=== PATIENT | male | born 1960 | race Caucasian/White ===

== ENCOUNTER 2020-09-12 06:00 | Outpatient (RCR) | payer MEDICARE, SELFPAY | END 2020-09-14 23:59 | disposition home or self-care (01) | LOC: MST 06:00 | PROVIDERS: PCP Nurse Practitioner Family; Referring Provider Nurse Practitioner Family; Visit Provider Nurse Practitioner Family | DX: I69.328 Other speech and language deficits following cerebral infarction (principal) | CPT/HCPCS: 92523 ==

== ENCOUNTER 2020-09-15 06:00 | Outpatient (RCR) | payer MEDICARE, SELFPAY | END 2020-10-15 23:59 | disposition home or self-care (01) | LOC: MST 06:00 | PROVIDERS: PCP Nurse Practitioner Family; Referring Provider Nurse Practitioner Family; Visit Provider Nurse Practitioner Family | DX: I69.928 Other speech and language deficits following unspecified cerebrovascular disease (principal); I69.951 Hemiplegia and hemiparesis following unspecified cerebrovascular disease affecting right dominant side | CPT/HCPCS: 92507 ==

== ENCOUNTER 2020-10-16 06:00 | Outpatient (RCR) | payer MEDICARE, SELFPAY | END 2020-11-14 23:59 | disposition home or self-care (01) | LOC: MST 06:00 | PROVIDERS: PCP Nurse Practitioner Family; Referring Provider Nurse Practitioner Family; Visit Provider Nurse Practitioner Family | DX: I69.998 Other sequelae following unspecified cerebrovascular disease (principal); R47.9 Unspecified speech disturbances | CPT/HCPCS: 92507 ==

== ENCOUNTER 2020-10-16 06:00 | Outpatient (RCR) | payer MEDICARE, SELFPAY | END 2020-11-14 23:59 | disposition home or self-care (01) | LOC: MOT 06:00 | PROVIDERS: PCP Nurse Practitioner Family; Referring Provider Nurse Practitioner Family; Visit Provider Nurse Practitioner Family | DX: I63.9 Cerebral infarction, unspecified (principal); R68.89 Other general symptoms and signs; Z74.09 Other reduced mobility; T14.8XXA Other injury of unspecified body region, initial encounter; X58.XXXA Exposure to other specified factors, initial encounter | CPT/HCPCS: 97110; 97112; 97140; 97166; 97535; G0283 ==

== ENCOUNTER 2020-11-15 06:00 | Outpatient (RCR) | payer MEDICARE, SELFPAY | END 2020-12-15 23:59 | disposition home or self-care (01) | LOC: MOT 06:00 | PROVIDERS: PCP Nurse Practitioner Family; Referring Provider Nurse Practitioner Family; Visit Provider Nurse Practitioner Family | DX: T14.8XXD Other injury of unspecified body region, subsequent encounter (principal); X58.XXXD Exposure to other specified factors, subsequent encounter; R68.89 Other general symptoms and signs; Z74.09 Other reduced mobility; I69.30 Unspecified sequelae of cerebral infarction | CPT/HCPCS: 97112; 97140; 97535 ==

== ENCOUNTER 2020-11-15 06:00 | Outpatient (RCR) | payer MEDICARE, SELFPAY | END 2020-12-15 23:59 | disposition home or self-care (01) | LOC: MST 06:00 | PROVIDERS: PCP Nurse Practitioner Family; Referring Provider Nurse Practitioner Family; Visit Provider Nurse Practitioner Family | DX: I69.998 Other sequelae following unspecified cerebrovascular disease (principal); R47.9 Unspecified speech disturbances | CPT/HCPCS: 92507 ==

== ENCOUNTER 2021-01-16 06:00 | Outpatient (RCR) | payer MEDICARE, SELFPAY | END 2021-02-14 23:59 | disposition home or self-care (01) | LOC: MOT 06:00 | PROVIDERS: PCP Nurse Practitioner Family; Referring Provider Nurse Practitioner Family; Visit Provider Nurse Practitioner Family | DX: R68.89 Other general symptoms and signs (principal); Z74.09 Other reduced mobility; I63.9 Cerebral infarction, unspecified; T14.8XXD Other injury of unspecified body region, subsequent encounter | CPT/HCPCS: 97110; 97112; 97140; G0283 ==

== ENCOUNTER 2021-02-15 06:00 | Outpatient (RCR) | payer MEDICARE, SELFPAY | END 2021-03-17 23:59 | disposition home or self-care (01) | LOC: MOT 06:00 | PROVIDERS: PCP Nurse Practitioner Family; Referring Provider Nurse Practitioner Family; Visit Provider Nurse Practitioner Family | DX: I69.351 Hemiplegia and hemiparesis following cerebral infarction affecting right dominant side (principal) | CPT/HCPCS: 97110; 97112; 97140 ==

== ENCOUNTER 2021-03-18 06:00 | Outpatient (RCR) | payer MEDICARE, SELFPAY | END 2021-04-16 23:59 | disposition home or self-care (01) | LOC: MOT 06:00 | PROVIDERS: PCP Nurse Practitioner Family; Referring Provider Nurse Practitioner Family; Visit Provider Nurse Practitioner Family | DX: Z74.09 Other reduced mobility (principal); Z86.73 Personal history of transient ischemic attack (TIA), and cerebral infarction without residual deficits; R68.89 Other general symptoms and signs; T14.8XXD Other injury of unspecified body region, subsequent encounter | CPT/HCPCS: 97110; 97112; 97140 ==

== ENCOUNTER 2021-04-17 06:00 | Outpatient (RCR) | payer MEDICARE, SELFPAY | END 2021-05-17 23:59 | disposition home or self-care (01) | LOC: MOT 06:00 | PROVIDERS: PCP Nurse Practitioner Family; Referring Provider Nurse Practitioner Family; Visit Provider Nurse Practitioner Family | DX: Z86.73 Personal history of transient ischemic attack (TIA), and cerebral infarction without residual deficits (principal) | CPT/HCPCS: 97110; 97112; 97140 ==

== ENCOUNTER 2021-05-18 06:00 | Outpatient (RCR) | payer MEDICARE, SELFPAY | END 2021-06-17 23:59 | disposition home or self-care (01) | LOC: MOT 06:00 | PROVIDERS: PCP Nurse Practitioner Family; Referring Provider Nurse Practitioner Family; Visit Provider Nurse Practitioner Family | DX: T14.8XXD Other injury of unspecified body region, subsequent encounter (principal); R68.89 Other general symptoms and signs; Z74.09 Other reduced mobility; I63.9 Cerebral infarction, unspecified | CPT/HCPCS: 97110; 97112; 97140 ==

== ENCOUNTER 2021-05-28 06:00 | Outpatient (RCR) | payer MEDICARE, SELFPAY | END 2021-06-17 23:59 | disposition home or self-care (01) | LOC: MPO 06:00 | PROVIDERS: PCP Nurse Practitioner Family; Visit Provider Nurse Practitioner Family | DX: G81.01 Flaccid hemiplegia affecting right dominant side (principal); R26.81 Unsteadiness on feet | CPT/HCPCS: 97110; 97162 ==

== ENCOUNTER 2021-06-18 06:00 | Outpatient (RCR) | payer MEDICARE, SELFPAY | END 2021-07-15 23:59 | disposition home or self-care (01) | LOC: MOT 06:00 | PROVIDERS: PCP Nurse Practitioner Family; Referring Provider Nurse Practitioner Family; Visit Provider Nurse Practitioner Family | DX: Z74.09 Other reduced mobility (principal); R68.89 Other general symptoms and signs; I69.30 Unspecified sequelae of cerebral infarction; T14.8XXD Other injury of unspecified body region, subsequent encounter | CPT/HCPCS: 97110; 97112; 97140 ==

== ENCOUNTER 2021-06-18 06:00 | Outpatient (RCR) | payer MEDICARE, SELFPAY | END 2021-07-15 23:59 | disposition home or self-care (01) | LOC: MPO 06:00 | PROVIDERS: PCP Nurse Practitioner Family; Visit Provider Nurse Practitioner Family | DX: G81.01 Flaccid hemiplegia affecting right dominant side (principal); R26.81 Unsteadiness on feet | CPT/HCPCS: 97110; 97112; 97140 ==

== ENCOUNTER 2021-07-16 06:00 | Outpatient (RCR) | payer MEDICARE, SELFPAY | END 2021-08-15 23:59 | disposition home or self-care (01) | LOC: MPO 06:00 | PROVIDERS: PCP Nurse Practitioner Family; Visit Provider Nurse Practitioner Family | DX: I63.9 Cerebral infarction, unspecified (principal) | CPT/HCPCS: 97110; 97112; 97116 ==

== ENCOUNTER 2021-08-16 06:00 | Outpatient (RCR) | payer MEDICARE, SELFPAY | END 2021-09-14 23:59 | disposition home or self-care (01) | LOC: MPO 06:00 | PROVIDERS: PCP Nurse Practitioner Family; Visit Provider Nurse Practitioner Family | DX: G81.01 Flaccid hemiplegia affecting right dominant side (principal); R26.81 Unsteadiness on feet | CPT/HCPCS: 97110 ==

== ENCOUNTER → 2022-10-28 10:32 | Outpatient (BNVA) | payer MEDICARE, SELFPAY | PROVIDERS: PCP Nurse Practitioner Family; Visit Provider Psychiatry & Neurology Neurology | DX: I69.320 Aphasia following cerebral infarction (principal); I69.392 Facial weakness following cerebral infarction; I69.351 Hemiplegia and hemiparesis following cerebral infarction affecting right dominant side; I10 Essential (primary) hypertension; Z98.890 Other specified postprocedural states; Z79.899 Other long term (current) drug therapy | CPT/HCPCS: 99203 ==

== ENCOUNTER 2023-01-26 06:00 | Outpatient (RCR) | payer MEDICARE, SELFPAY | END 2023-02-14 23:59 | disposition home or self-care (01) | LOC: MPT 06:00 | PROVIDERS: PCP Nurse Practitioner Family; Visit Provider Nurse Practitioner Family | DX: M25.511 Pain in right shoulder (principal) | CPT/HCPCS: 97162 ==